=== PATIENT | male | born 1970 | race African-American/Black ===

== ENCOUNTER 2019-10-28 12:47 | Emergency (ER) | payer MEDICAID ==
[~2019-10-28] VITALS: Ht 177.8 cm; Wt 86.0 kg
[2019-10-28] MEDS ORDERED: ETOMIDATE 2MG/ML 10ML VIAL IV ONE (12:49)
[2019-10-28] MEDS ORDERED: EPINEPHRINE 0.1MG/ML (1:10,000) 10ML SYR ONE ×5 (12:49→14:07)
[2019-10-28] MEDS ORDERED: CALCIUM CHLORIDE 1GM/10ML SYR IV ONE (12:49)
[2019-10-28] MEDS ORDERED: DEXTROSE 50% WATER 50ML VIAL IV ONE (12:49)
[2019-10-28] MEDS ORDERED: SODIUM BICARBONATE 8.4% MEQ/ML 50ML VIAL IV ONE (12:49)
[2019-10-28 12:50] VITALS: BP 97/70
[2019-10-28] MEDS ORDERED: ALTEPLASE 50MG/VIAL IV NR (14:15)
== END 2019-10-28 14:20 | disposition expired ==
LOC: ER 13:07
DX: I46.9 Cardiac arrest, cause unspecified (principal); E11.9 Type 2 diabetes mellitus without complications; I10 Essential (primary) hypertension; Z95.0 Presence of cardiac pacemaker
CPT/HCPCS: 31500; 82962; 92950; 93005; 99291; J3490; J2997